=== PATIENT | female | born 1965 | race Caucasian/White ===

== ENCOUNTER → 2017-12-31 | Outpatient (CLI) | payer OTHER ==
[~2017-12-31] MED LIST: AMOX TR-K250 MG/5 M PO; HYDROCODON-ACE1 EA11 PO; IBUPROFEN400 MG PO; NAPROXEN250 MG PO; ZYRTEC-D TABLE1 EACH PO
== END ==
LOC: MAMMO 14:41
PROVIDERS: ATTEND Internal Medicine Cardiovascular Disease
DX: Z12.31 Encounter for screening mammogram for malignant neoplasm of breast (principal)
CPT/HCPCS: G0202

== ENCOUNTER → 2019-11-04 | Outpatient (CLI) | payer OTHER | LOC: MAMMO 09:50 | PROVIDERS: ATTEND Obstetrics & Gynecology | DX: Z12.31 Encounter for screening mammogram for malignant neoplasm of breast (principal) | CPT/HCPCS: 77067 ==